=== PATIENT | female | born 2000 | race Caucasian/White ===

== ENCOUNTER 2020-08-19 09:08 | Emergency (ER) | payer OTHER ==
[~2020-08-19 09:08] MED LIST: IBUPROFEN600 MG PO; MIRALAX17 GM PO; NORCO 5-325 TA1 EACH PO; PERCOCET 5/325 T1 EA PO; PROCTOCREAM-HC30 G1 TP; SPRINTEC 28 DA1 EACH PO; VITAMIN B-1000 MCG/M SC
== END 2020-08-19 10:49 | disposition home or self-care (01) ==
LOC: ER1 09:08
DX: J06.9 Acute upper respiratory infection, unspecified (principal); Z88.0 Allergy status to penicillin; Z88.1 Allergy status to other antibiotic agents; Z20.828 Contact with and (suspected) exposure to other viral communicable diseases
CPT/HCPCS: 71045; 99283; U0003

== ENCOUNTER 2021-01-21 17:36 | Emergency (ER) | payer OTHER | END 2021-01-21 19:18 | disposition home or self-care (01) | LOC: ER1 17:36 | DX: M25.561 Pain in right knee (principal); Z88.0 Allergy status to penicillin | CPT/HCPCS: 73564; 99283 ==

== ENCOUNTER → 2021-03-24 | Outpatient (CLI) | payer OTHER | LOC: EXRD 14:21 | DX: R10.2 Pelvic and perineal pain (principal); E28.2 Polycystic ovarian syndrome | CPT/HCPCS: 76856 ==

== ENCOUNTER 2021-06-17 10:26 | Emergency (ER) | payer OTHER ==
[2021-06-17 12:15] LABS: HEMOGLOBIN 13.7 gm/dl (12.3-15.3); RED BLOOD COUNT 4.68 M/UL (4.00-5.10); WHITE BLOOD COUNT 7.2 K/UL (4.5-11.0)
[2021-06-17 12:42] LABS: BUN/CREATININE RATIO 12 (0-10)
[2021-06-17] MEDS ORDERED: MACROBID 100 M100 M1 PO (13:11)
[2021-06-17] MEDS ORDERED: IBUPROFEN600 MG PO (13:50)
== END 2021-06-17 13:53 | disposition home or self-care (01) ==
LOC: ER1 10:26
PROVIDERS: Physician Assistant
DX: N39.0 Urinary tract infection, site not specified (principal); Z88.0 Allergy status to penicillin
CPT/HCPCS: 80053; 81001; 83690; 84703; 85025; 96374; 96375; 99284; J2270; J2405; Q9967

== ENCOUNTER → 2021-07-09 | Outpatient (CLI) | payer OTHER ==
[~2021-07-09] MED LIST changes: +MACROBID 100 M100 M1 PO
== END ==
LOC: KOH-I 15:07
DX: M25.561 Pain in right knee (principal)
CPT/HCPCS: 73562

== ENCOUNTER → 2022-02-17 | Outpatient (CLI) | payer OTHER | LOC: RAD 14:18 | DX: M54.50 Low back pain, unspecified (principal); R10.9 Unspecified abdominal pain | CPT/HCPCS: 72110; 74018 ==

== ENCOUNTER → 2022-05-04 | Outpatient (CLI) | payer OTHER | LOC: KOH-I 10:56 | DX: M54.6 Pain in thoracic spine (principal) | CPT/HCPCS: 72070 ==